=== PATIENT | female | born 1945 | race Caucasian/White ===

== ENCOUNTER 2020-09-23 10:46 | Day surgery (SDC) | payer MEDICARE, OTHER, SELFPAY ==
--- NOTE | 2020-09-22 12:08 | P.CONAN_ITS ---
Documented by User: Tiffany Platt 09/23/20 11:53 HPI - Anesthesia Eval Consult details Narrative: 75yo F for Colonoscopy PMFSH Past Medical History Medical History Bladder prolapse CKD (chronic kidney disease) Elevated TSH Glaucoma Hypertension Osteoarthritis Surgical History Surgical History H/O colonoscopy S/P appendectomy Social History Social History Are you a primary child care centre manager to a significant other at home: No Do you presently have visiting nurse or other home services: No Advance Directives: Yes Advance Directives Information Provided: Yes Advance Directives on File: No Advance Directives Date on File: 09/23/20 Recently lost weight without trying: No Meds Allergies Allergy/AdvReac Type Severity Reaction Status Date / Time No Known Allergies Allergy Verified 09/22/20 12:11 Home Medications Medication Instructions Recorded Confirmed Type amlodipine 1 tab PO BID 09/23/20 09/23/20 History Exam Exam Date and Time: September 22, 2020 1208 Assessment and Plan Assessment Anesthesia Assessment: Chart Reviewed Documented by User: Letty Giles 09/23/20 12:42 [facility] Past Medical History Medical History Bladder prolapse CKD (chronic kidney disease) Elevated TSH Glaucoma Hypertension Osteoarthritis Family History Family history of problems with anesthesia: No Surgical History Surgical History H/O colonoscopy S/P appendectomy History of Problems with Anesthesia: No Social History Social History Are you a primary child care centre manager to a significant other at home: No Do you presently have visiting nurse or other home services: No Advance Directives: Yes Advance Directives Information Provided: Yes Advance Directives on File: No Advance Directives Date on File: 09/23/20 Recently lost weight without trying: No Meds Allergies Allergy/AdvReac Type Severity Reaction Status Date / Time No Known Allergies Allergy Verified 09/22/20 12:11 Home Medications Medication Instructions Recorded Confirmed Type amlodipine 1 tab PO BID 09/23/20 09/23/20 History Exam Exam Date and Time: Vital Signs Temp Pulse Resp BP Pulse Ox 09/23/20 11:42 97.7 F 75 16 154/75 H 98 Airway Mallampati Class: II TM Dist: >3cm Neck ROM: Full Loose/Missing/Broken Teeth: Yes (1 back) Heart: RRR Lungs: CTAB Assessment and Plan Assessment Anesthesia Assessment: Anesthesia Plan Discussed and Chart Reviewed Final Anesthetic Review NPO: Yes ASA Class: II Final Preanesthetic Review: No Changes in Pt Med Stat, Meds/Allgs Chart Reviewed, Consent Obtained/Reviewed and Anes Risks/Benef Reviewed Patient Risk: Low Procedure Risk: Low Anesthetic Plan Anesthetic Plan: MAC: Disposition: Standard PACU
[2020-09-23 11:13] VITALS: BMI 29.8
[2020-09-23 11:42] VITALS: BP 154/75; PULSE 75; RESP 16; TEMP 36.5; O2SAT 98
[2020-09-23] MEDS: Lactated Ringers 1,000 ML 100 ML IVCONT (11:44)
--- NOTE | 2020-09-23 11:51 | MHC.SHP ---
Pre-Procedural Eval Section A The patient is an INPATIENT: No Changes since office visit: No Cold of Flu in the past 2 weeks, No New Medical Problems, No Changes in Medication and No Patient answered all questions The History & Physical has been completed within 30 days and I have reviewed it.: Yes Section B Chief Complaint: screening Allergies: Allergies Allergy/AdvReac Type Severity Reaction Status Date / Time No Known Allergies Allergy Verified 09/22/20 12:11 Plan Patient has been examined and remains a candidate for the planned procedure
--- NOTE | 2020-09-23 13:09 | PM.OP ---
Brief Operative Note Date of Service: 09/23/20 Pre-op diagnosis: screening Post-op diagnosis: other (colon polyp) Procedure: colonoscopy Surgeon: Josiah Foy Anesthesia: MAC Estimated blood loss (mL): 5 Pathology: other (polyps X 3) Condition: stable Disposition: PACU
[2020-09-23 13:12] VITALS: BP 106/55; PULSE 65; RESP 19; TEMP 36.4; O2SAT 99
[2020-09-23 13:28] VITALS: BP 128/63; PULSE 63; RESP 20; O2SAT 99
--- NOTE | 2020-09-23 13:40 | OP_ITS ---
SURGEON: Josiah Foy MD INDICATIONS: Colon cancer screening. PREOPERATIVE DIAGNOSIS: POSTOPERATIVE DIAGNOSIS: PROCEDURE PERFORMED: Colonoscopy to the terminal ileum with snare polypectomy and biopsy. ESTIMATED BLOOD LOSS: COMPLICATIONS: ANESTHESIA: ASSISTANTS: SPECIMENS: MEDICATIONS: Monitored anesthesia care. DESCRIPTION OF PROCEDURE: History and physical performed. The risks and benefits of the procedure were explained to the patient. Informed consent was obtained. The patient was placed in left lateral decubitus position. A digital rectal exam was performed and was found to be normal. The Olympus pediatric video colonoscope was introduced into the rectum and advanced to the cecum without difficulty. The cecum was identified by transillumination, palpation, and identification of ileocecal valve. Examination was performed and the scope was removed. She tolerated the procedure well and was taken to recovery area in stable condition. FINDINGS: The terminal ileum was examined and appeared normal. The visualized colonic mucosa was within normal limits without evidence of masses or ulcers. In the cecum, was a less than 5 mm polyp, which was removed with biopsy forceps. A second polyp at the level of the ileocecal valve was removed with a snare measuring 6 mm and a third polyp at 70 cm was removed with a snare measuring 6 mm. No other polyps were identified. There was mild sigmoid diverticulosis noted. Retroflexed examination showed moderate-sized internal hemorrhoids. The quality of the prep was good. IMPRESSION: Colon polyps. RECOMMENDATION: Follow up the biopsy results. MD VILMA Garcia/MICHAEL / [id number]
--- NOTE | 2020-09-23 14:00 | HO.POSTANES ---
Post Anesthesia Evaluation Post Anesthesia Evaluation Vital Signs: Vital Signs Temp Pulse Resp BP Pulse Ox 09/23/20 13:28 97.5 F 63 20 128/63 99 09/23/20 13:12 97.5 F 65 19 106/55 L 99 09/23/20 11:42 97.7 F 75 16 154/75 H 98 Anesthesia: Monitored Mental Status: Awake Pain Control: Satisfactory Nausea/Vomiting: None Hydration: Adequate Anesthesia-Related Issues: No Anes. Related Issues
== END 2020-09-23 14:20 | disposition home or self-care (01) ==
PROVIDERS: PCP Internal Medicine Geriatric Medicine; Visit Provider Internal Medicine Gastroenterology
PROC: 0DJD8ZZ Inspection of Lower Intestinal Tract, Via Natural or Artificial Opening Endoscopic (ICD-10-PCS; CPT 45378; principal; 2020-09-23 12:20)
DX: Z12.11 Encounter for screening for malignant neoplasm of colon (principal); D12.0 Benign neoplasm of cecum; D12.6 Benign neoplasm of colon, unspecified; K57.30 Diverticulosis of large intestine without perforation or abscess without bleeding; Z86.010 Personal history of colon polyps; Z80.0 Family history of malignant neoplasm of digestive organs
CPT/HCPCS: 45385; 45380; 88305

== ENCOUNTER 2023-09-20 07:48 | Day surgery (SDC) | payer MEDICARE, OTHER, SELFPAY ==
[2023-09-16 14:59] VITALS: BMI 27.0
--- NOTE | 2023-09-20 08:21 | P.CONAN_ITS ---
HPI - Anesthesia Eval Consult details Narrative: Colonoscopy PMFSH Active Problems Active Problems: All Active Problems (Updated 09/16/23 @ 14:59 by Amy Flores RN) H/O colonoscopy (Acute) Past Medical History Medical History (Updated 09/16/23 @ 14:59 by Amy Flores RN) Osteopenia Elevated TSH CKD (chronic kidney disease) Osteoarthritis Bladder prolapse Glaucoma Hypertension Family History Family history of problems with anesthesia: No Surgical History Surgical History (Updated 09/16/23 @ 14:58 by Amy Flores RN) H/O colonoscopy S/P appendectomy History of Problems with Anesthesia: No Social History Social History Are you a primary primary care sales representative to a significant other at home: No Do you presently have visiting nurse or other home services: No Advance Directives: No Advance Directives Information Provided: Yes Advance Directives Date on File: 09/23/20 Meds Allergies Allergy/AdvReac Type Severity Reaction Status Date / Time No Known Allergies Allergy Verified 09/22/20 12:11 Home Medications Medication Instructions Recorded Confirmed Last Taken Type amlodipine 5 mg tablet 1 tab PO BID 09/23/20 09/16/23 09/23/20 08:25 History cholecalciferol (vitamin D3) 50 50 mcg PO DAILY 09/16/23 09/16/23 Unknown History mcg (2,000 unit) capsule (Vitamin D3) hydrochlorothiazide 12.5 mg capsule 12.5 mg PO DAILY 09/16/23 09/16/23 Unknown History melatonin 1 mg tablet 1 mg PO BEDTIME 09/16/23 09/16/23 Unknown History Exam Height,Weight and Vital Signs: Height 5 ft 1 in Weight 64.864 kg Airway Mallampati Class: II Neck ROM: Limited Heart: rrr Lungs: cta Assessment and Plan Final Anesthetic Review Family History of Problems with Anesthesia: No History of Problems with Anesthesia: No NPO: Yes ASA Class: II Final Preanesthetic Review: No Changes in Pt Med Stat, Meds/Allgs Chart Reviewed, Consent Obtained/Reviewed and Anes Risks/Benef Reviewed Patient Risk: Intermediate Procedure Risk: Low Anesthetic Plan Anesthetic Plan: MAC: and Agree w/ Assess. and Plan Disposition: Standard PACU
[2023-09-20 08:22] VITALS: BMI 26.8
[2023-09-20] MEDS: Lactated Ringers 1,000 ML 80 ML IVCONT (08:27)
[2023-09-20 09:01] VITALS: BP 147/60; PULSE 66; RESP 18; TEMP 36.9; O2SAT 99
--- NOTE | 2023-09-20 09:16 | MHC.SHP ---
Pre-Procedural Eval Section A Date of Service: 09/20/23 Section B Chief Complaint: screening,hx malignant neoplasm Details of Present Illness: see H&P no changes Relevant Family History (Specify if Yes): No Relevant Social History: None Present Medications: see Short Stay Collaborative assessment Medical History: No relevant PMH History of Previous Operations: No relevant previous surgery Allergies: Allergies Allergy/AdvReac Type Severity Reaction Status Date / Time No Known Allergies Allergy Verified 09/20/23 08:22 Review of Systems Sugical H&P ROS: Negative: Constitution, Cardiovascular, Respiratory, Neurological, Psychiatric, Hem-Onc, Allergic/Immunologic, Gastrointestinal, Genitourinary, Musculoskeletal, Integumentary, Endocrine and Eyes/Ears/Nose/Throat Exam Surgical H&P Exam: Normal: HEENT, Normal: Heart, Normal: Lungs, Normal: Extremities, Normal: Abdomen, Normal: Skin and Normal: Neurological Plan Diagnosis/Plan: Unchanged I have reviewed the history and physical and performed a pertinent physical examination on my patient. No changes have occurred unless specified. Time Spent With Patient Time: Total time managing care of this patient today ____ minutes.
[2023-09-20 09:52] VITALS: BP 116/55; PULSE 58; RESP 12; TEMP 36.8; O2SAT 98
[2023-09-20 10:07] VITALS: BP 126/53; PULSE 46; RESP 18; TEMP 36.1; O2SAT 100
--- NOTE | 2023-09-20 10:09 | OP_ITS ---
DATE OF SERVICE: 09/20/2023 SURGEON: Josiah Foy MD INDICATIONS: Colon cancer screening and prior history of adenomatous colon polyps. PREOPERATIVE DIAGNOSIS: POSTOPERATIVE DIAGNOSIS: PROCEDURE PERFORMED: Colonoscopy to the terminal ileum with biopsy and snare polypectomy. ESTIMATED BLOOD LOSS: COMPLICATIONS: ANESTHESIA: Monitored anesthesia care. ASSISTANTS: SPECIMENS: DESCRIPTION OF PROCEDURE: A history and physical was performed. The risks and benefits of the procedure were explained to the patient. Informed consent was obtained. The patient was placed in the left lateral decubitus position. A digital rectal exam was performed and was found to be normal. The Olympus pediatric video colonoscope was introduced into the rectum and advanced to the cecum. The cecum was identified by transillumination, palpation, and identification of ileocecal valve. Examination was performed. The scope was removed. She tolerated the procedure well and was returned to the recovery area in stable condition. FINDINGS: The terminal ileum was normal. The visualized colonic mucosa was normal. The quality of the prep was good. Multiple polyps were identified and removed with a combination of snare and biopsy forceps. At the appendiceal orifice was a less than 5 mm polyp, which was removed with a biopsy forceps. The remainder of the polyps were removed with a snare at the cecum and at 60 cm, and a 50 cm polyp was also removed with a biopsy forceps. There were 2 at this level. There was moderate diverticulosis. Retroflexed examination showed some small internal hemorrhoids. IMPRESSION: Colon polyps. RECOMMENDATION: Follow up the biopsy results. MD VILMA Garcia/MICHAEL / [id number]
== END 2023-09-20 10:52 | disposition home or self-care (01) ==
PROVIDERS: PCP Internal Medicine Geriatric Medicine; Visit Provider Internal Medicine Gastroenterology
PROC: 0DJD8ZZ Inspection of Lower Intestinal Tract, Via Natural or Artificial Opening Endoscopic (ICD-10-PCS; CPT 45378; principal; 2023-09-20 09:40)
DX: Z12.11 Encounter for screening for malignant neoplasm of colon (principal); D12.0 Benign neoplasm of cecum; D12.4 Benign neoplasm of descending colon; D12.5 Benign neoplasm of sigmoid colon; D12.1 Benign neoplasm of appendix; K57.30 Diverticulosis of large intestine without perforation or abscess without bleeding; K64.8 Other hemorrhoids; I12.9 Hypertensive chronic kidney disease with stage 1 through stage 4 chronic kidney disease, or unspecified chronic kidney disease; N18.30 Chronic kidney disease, stage 3 unspecified; Z86.010 Personal history of colon polyps; Z80.0 Family history of malignant neoplasm of digestive organs
CPT/HCPCS: 45385; 45380; 88305; J2704